=== PATIENT | female | born 1980 ===

== ENCOUNTER 2017-08-23 08:00 | Outpatient (CLI) | payer OTHER ==
[2017-08-24 05:09] LABS: HEPATITIS B SURFACE AB Non Reactive (.)
[2017-08-24 08:09] LABS: RUBELLA AB, IgG <0.90 index (Immune >0.99); VARICELLA ZOSTER IgG 678 index (Immune >165)
== END 2017-08-23 23:59 | disposition home or self-care (01) ==
LOC: LAB 08:00
DX: Z02.1 Encounter for pre-employment examination (principal)
CPT/HCPCS: 36415; 86706